=== PATIENT | male | born 1940 | race African-American/Black ===

== ENCOUNTER 2017-03-19 15:10 | Inpatient (IN) ==
[2017-03-19] MEDS ORDERED: SODIUM CHLORIDE 0.9% 500 ML IV STA (15:28)
[2017-03-19 16:30] LABS: Basophils % 0.6 % (0.0-0.8); Eosinophils # 0.1 10*3/uL (0.0-0.87); Eosinophils % 1.5 % (0.00-10.9); Hematocrit 42.2 VOL% (42.0-52.0); Hemoglobin 14.4 GM/DL (14.0-18.0); Immature Granulocytes % 0.2 %; Immature Granulocytes Absolute 0.01 #; Lymphocytes % 19.3 % (21.2-54.2); Mean Corpuscular HGB Conc 34.1 GM/DL (32-36); Mean Corpuscular Hemoglobin 28 PG (27-34); Mean Corpuscular Volume 80.5 FL (87-102); Mean Platelet Volume 10.4 FL (9.6-12.0); Monocytes # 0.4 10*3/uL (0.11-0.8); Monocytes % 8.1 % (1.7-12.7); Neutrophils # 3.6 10*3/uL (1.4-7.4); Neutrophils % 70.3 % (38.7-73.9); Platelet Count 164 T/CUMM (130-400); Red Blood Count 5.24 MC/CUMM (3.8-5.5); Red Cell Distribution Width 13.9 % (9.3-17.3); White Blood Count 5.2 T/CUMM (4-12)
[2017-03-19] MEDS ORDERED: ZIPRASIDONE 20 MG/1 ML VIAL IM STA (16:32)
[2017-03-19] MEDS ORDERED: ZIPRASIDONE 20 MG/1 ML VIAL IM ONE (16:34)
[2017-03-19 16:39] LABS: INR 1.1; PT Patient Result 11.7 SECS
[2017-03-19 16:41] LABS: Apearance,Urine Slightly Hazy (Clear); Bacteria,Urine Occasional /HPF (Few); Bilirubin,Urine Negative (Negative); Blood, Urine Negative (Negative); Glucose,Urine (UA) 50 mg/dL (Negative); Ketones,Urine Negative (Negative); Mucus,Urine Moderate /LPF (Occasional); Nitrite,Urine Negative (Negative); Protein,Urine Negative; RBC,Urine 1 /HPF (0-4); Squamous Epithelial Cell,Urine Occasional /HPF (0-10); Urine Color Yellow (Yellow); Urine Specific Gravity 1.021 (1.001-1.035); WBC,Urine 1 /HPF (0-6)
[2017-03-19 16:57] LABS: Alanine Aminotransferase 13 U/L (16-61); Albumin 3.8 G/DL (3.4-5.0); Alkaline Phosphatase 80 U/L (45-117); Aspartate Amino Transferase 12 U/L (0-37); Blood Urea Nitrogen 19 MG/DL (7-18); Calcium 9.5 MG/DL (8.5-10.1); Glucose 115 MG/DL (74-106); Potassium 3.7 MMOL/L (3.5-5.1); Sodium 143 MMOL/L (136-145); Total Protein 6.7 G/DL (6.4-8.3)
[2017-03-19 17:01] LABS: Barbiturates Screen,Urine Negative (Negative); Benzodiazepines Screen,Urine Positive (Negative); Cannabinoid Screen,Urine Negative (Negative); Opiate Screen,Urine Negative (Negative); Phencyclidine Screen,Urine Negative (Negative)
[2017-03-19] MEDS ORDERED: GLUCAGON 1 MG VIAL IM PRN (19:54)
[2017-03-19] MEDS ORDERED: ONDANSETRON 4 MG/2 ML VIAL IV PRN (19:54)
[2017-03-19] MEDS ORDERED: DEXTROSE 50% 25 GM/50 ML VIAL IV PRN (19:54)
[2017-03-19] MEDS: HALOPERIDOL 5 MG/ML AMP IV PRN (20:05)
[2017-03-19] MEDS: INSULIN LISPRO 100 UNIT/ML SUBCUT SCH ×2 (20:16→21:23)
[2017-03-19] MEDS: SODIUM CHLORIDE 0.9% 1,000 ML IV SCH (20:17)
[2017-03-19] MEDS: THIAMINE 200 MG/2 ML VIAL IV SCH (20:17)
[2017-03-19 21:36] LABS: Free T4 (Free Thyroxine) 1.07 NG/DL (0.76-1.46)
[2017-03-19 21:47] LABS: Magnesium 1.9 MG/DL (1.8-2.4); Thyroid Stimulating Hormone 0.999 uIU/ml (0.358-3.74)
[2017-03-19] MEDS: hydrALAZINE 20 MG/1 ML VIAL IV PRN (22:42)
[2017-03-19] MEDS: LORazepam 2 MG/1 ML VIAL IV PRN (23:41)
[2017-03-20] MEDS: LORazepam 2 MG/1 ML VIAL IV PRN ×5 (01:40→18:31)
[2017-03-20] MEDS: INSULIN LISPRO 100 UNIT/ML SUBCUT SCH ×6 (02:14→22:59)
[2017-03-20] MEDS: SODIUM CHLORIDE 0.9% 1,000 ML IV SCH ×3 (04:17→21:30)
[2017-03-20 05:33] LABS: Basophils % 0.4 % (0.0-0.8); Eosinophils % 0.1 % (0.00-10.9); Hematocrit 45.9 VOL% (42.0-52.0); Hemoglobin 15.6 GM/DL (14.0-18.0); Immature Granulocytes % 0.3 %; Immature Granulocytes Absolute 0.03 #; Lymphocytes # 1.3 10*3/uL (1.4-4.0); Lymphocytes % 11.8 % (21.2-54.2); Mean Corpuscular Hemoglobin 27 PG (27-34); Mean Corpuscular Volume 78.2 FL (87-102); Mean Platelet Volume 11.2 FL (9.6-12.0); Monocytes # 0.9 10*3/uL (0.11-0.8); Monocytes % 7.9 % (1.7-12.7); Neutrophils # 8.7 10*3/uL (1.4-7.4); Neutrophils % 79.5 % (38.7-73.9); Platelet Count 190 T/CUMM (130-400); Red Blood Count 5.87 MC/CUMM (3.8-5.5); Red Cell Distribution Width 13.8 % (9.3-17.3); White Blood Count 10.9 T/CUMM (4-12)
[2017-03-20 06:00] LABS: Albumin 4.2 G/DL (3.4-5.0); Bilirubin,Total 1.5 MG/DL (0.2-1.0); Calcium 9.7 MG/DL (8.5-10.1); Osmolality,Calculated 290.7 MOS/KG (273-304); Potassium 3.4 MMOL/L (3.5-5.1); Total Protein 7.2 G/DL (6.4-8.3)
[2017-03-20] MEDS: THIAMINE 200 MG/2 ML VIAL IV SCH (09:40)
[2017-03-20 12:17] LABS: Basophils % 0.3 % (0.0-0.8); Eosinophils % 0.3 % (0.00-10.9); Hematocrit 43.6 VOL% (42.0-52.0); Immature Granulocytes % 0.4 %; Immature Granulocytes Absolute 0.04 #; Lymphocytes # 0.9 10*3/uL (1.4-4.0); Lymphocytes % 8.1 % (21.2-54.2); Mean Corpuscular HGB Conc 34.4 GM/DL (32-36); Mean Corpuscular Hemoglobin 27 PG (27-34); Mean Corpuscular Volume 79.1 FL (87-102); Mean Platelet Volume 10.9 FL (9.6-12.0); Monocytes # 0.9 10*3/uL (0.11-0.8); Monocytes % 8.1 % (1.7-12.7); Neutrophils # 8.7 10*3/uL (1.4-7.4); Neutrophils % 82.8 % (38.7-73.9); Platelet Count 178 T/CUMM (130-400); Red Blood Count 5.51 MC/CUMM (3.8-5.5); Red Cell Distribution Width 13.9 % (9.3-17.3); White Blood Count 10.5 T/CUMM (4-12)
[2017-03-20 12:45] LABS: Bilirubin,Total 1.2 MG/DL (0.2-1.0); Calcium 9.4 MG/DL (8.5-10.1); Osmolality,Calculated 287.8 MOS/KG (273-304); Potassium 3.4 MMOL/L (3.5-5.1)
[2017-03-20 17:03] LABS: Glucose,CSF 71 MG/DL (40-70)
[2017-03-20 18:39] LABS: Appearance,CSF Clear; Red Blood Cell,CSF < 1 C/CUMM; White Blood Cell,CSF 4 C/CUMM
[2017-03-20 18:43] LABS: Lymphocytes,CSF 50 %; Monocytes,CSF 28 %; Neutrophils,CSF 22 %
[2017-03-21] MEDS: LORazepam 2 MG/1 ML VIAL IV PRN ×5 (00:33→23:26)
[2017-03-21] MEDS: INSULIN LISPRO 100 UNIT/ML SUBCUT SCH ×6 (02:15→22:08)
[2017-03-21] MEDS: hydrALAZINE 20 MG/1 ML VIAL IV PRN (04:39)
[2017-03-21] MEDS: SODIUM CHLORIDE 0.9% 1,000 ML IV SCH ×3 (05:30→22:08)
[2017-03-21 06:19] LABS: Basophils # 0.1 10*3/uL (0.0-0.2); Basophils % 0.5 % (0.0-0.8); Eosinophils # 0.1 10*3/uL (0.0-0.87); Eosinophils % 0.5 % (0.00-10.9); Hematocrit 44.3 VOL% (42.0-52.0); Hemoglobin 15.1 GM/DL (14.0-18.0); Immature Granulocytes % 0.4 %; Immature Granulocytes Absolute 0.05 #; Lymphocytes # 1.2 10*3/uL (1.4-4.0); Lymphocytes % 9.3 % (21.2-54.2); Mean Corpuscular HGB Conc 34.1 GM/DL (32-36); Mean Corpuscular Hemoglobin 27 PG (27-34); Mean Corpuscular Volume 79.7 FL (87-102); Mean Platelet Volume 11.9 FL (9.6-12.0); Monocytes # 0.9 10*3/uL (0.11-0.8); Monocytes % 7.3 % (1.7-12.7); NRBC # 0.02 10*3/uL; Neutrophils # 10.2 10*3/uL (1.4-7.4); Platelet Count 145 T/CUMM (130-400); Red Blood Count 5.56 MC/CUMM (3.8-5.5); Red Cell Distribution Width 14.1 % (9.3-17.3); White Blood Count 12.4 T/CUMM (4-12)
[2017-03-21 07:03] LABS: Albumin 3.6 G/DL (3.4-5.0); Bilirubin,Total 1.3 MG/DL (0.2-1.0); Calcium 9.1 MG/DL (8.5-10.1); Potassium 3.8 MMOL/L (3.5-5.1); Total Protein 6.5 G/DL (6.4-8.3)
[2017-03-21] MEDS: THIAMINE 200 MG/2 ML VIAL IV SCH (08:51)
[2017-03-21] MEDS ORDERED: DILTIAZEM 100 MG VIAL.ADD IV ONE (16:41)
[2017-03-21] MEDS: DILTIAZEM INJ 100 MG in SODIUM CHLORIDE 0.9% 100 ML IV SCH (17:07)
[2017-03-21 18:10] LABS: Troponin I Only 0.065 NG/ML (0.00-0.045)
[2017-03-22] MEDS: DILTIAZEM INJ 100 MG in SODIUM CHLORIDE 0.9% 100 ML IV SCH ×4 (01:43→23:51)
[2017-03-22] MEDS: INSULIN LISPRO 100 UNIT/ML SUBCUT SCH ×6 (02:53→22:14)
[2017-03-22] MEDS: LORazepam 2 MG/1 ML VIAL IV PRN ×4 (05:08→19:56)
[2017-03-22] MEDS: SODIUM CHLORIDE 0.9% 1,000 ML IV SCH ×4 (05:19→20:20)
[2017-03-22 06:59] LABS: Calcium 8.6 MG/DL (8.5-10.1); Magnesium 1.9 MG/DL (1.8-2.4); Osmolality,Calculated 285.8 MOS/KG (273-304); Potassium 4.9 MMOL/L (3.5-5.1)
[2017-03-22 07:35] LABS: Basophils % 0.4 % (0.0-0.8); Eosinophils # 0.2 10*3/uL (0.0-0.87); Eosinophils % 2.2 % (0.00-10.9); Hematocrit 41.3 VOL% (42.0-52.0); Hemoglobin 14.1 GM/DL (14.0-18.0); Immature Granulocytes % 0.2 %; Immature Granulocytes Absolute 0.02 #; Lymphocytes # 1.3 10*3/uL (1.4-4.0); Lymphocytes % 13.9 % (21.2-54.2); Mean Corpuscular HGB Conc 34.1 GM/DL (32-36); Mean Corpuscular Hemoglobin 27 PG (27-34); Mean Corpuscular Volume 79.6 FL (87-102); Mean Platelet Volume 10.5 FL (9.6-12.0); Monocytes # 0.8 10*3/uL (0.11-0.8); Monocytes % 8.2 % (1.7-12.7); Neutrophils # 7.3 10*3/uL (1.4-7.4); Neutrophils % 75.1 % (38.7-73.9); Platelet Count 160 T/CUMM (130-400); Red Blood Count 5.19 MC/CUMM (3.8-5.5); White Blood Count 9.7 T/CUMM (4-12)
[2017-03-22 07:42] LABS: Albumin 3.1 G/DL (3.4-5.0); Bilirubin,Total 1.4 MG/DL (0.2-1.0); Calcium 8.9 MG/DL (8.5-10.1); Total Protein 6.2 G/DL (6.4-8.3)
[2017-03-22] MEDS: THIAMINE 200 MG/2 ML VIAL IV SCH (10:07)
[2017-03-22] MEDS: ENOXAPARIN 80 MG/0.8 ML SYRINGE SUBCUT SCH (17:23)
[2017-03-23] MEDS: INSULIN LISPRO 100 UNIT/ML SUBCUT SCH ×6 (03:22→22:05)
[2017-03-23] MEDS: ENOXAPARIN 80 MG/0.8 ML SYRINGE SUBCUT SCH ×2 (04:09→18:28)
[2017-03-23] MEDS: SODIUM CHLORIDE 0.9% 1,000 ML IV SCH ×2 (04:09→04:14)
[2017-03-23] MEDS: LORazepam 2 MG/1 ML VIAL IV PRN ×5 (04:12→23:17)
[2017-03-23] MEDS: THIAMINE 200 MG/2 ML VIAL IV SCH (08:49)
[2017-03-23] MEDS: DILTIAZEM INJ 100 MG in SODIUM CHLORIDE 0.9% 100 ML IV SCH ×3 (10:44→22:55)
[2017-03-23] MEDS: LACTATED RINGERS 1,000 ML IV SCH ×2 (10:45→18:45)
[2017-03-23] MEDS: HALOPERIDOL 5 MG/ML AMP IV PRN ×2 (13:02→15:44)
[2017-03-23] MEDS ORDERED: AMIODARONE INJ 450 MG in DEXTROSE 5% 241 ML IV SCH (14:30)
[2017-03-23 15:24] LABS: ABG HCO3 21.9 MMOL/L (20-26); ABG Oxygen Saturation 98.5 % (95-100); ABG PCO2 30.9 MM HG (35-48); ABG PH 7.425 (7.35-7.45); ABG TCO2 17.4 MMOL/L (23-27); Allen Test Positive
[2017-03-23] MEDS: AMIODARONE INJ 450 MG in DEXTROSE 5% 241 ML IV SCH (22:56)
[2017-03-24] MEDS: hydrALAZINE 20 MG/1 ML VIAL IV PRN ×3 (01:00→21:34)
[2017-03-24] MEDS: INSULIN LISPRO 100 UNIT/ML SUBCUT SCH ×6 (02:10→21:44)
[2017-03-24] MEDS: LORazepam 2 MG/1 ML VIAL IV PRN ×5 (02:12→17:33)
[2017-03-24] MEDS: LACTATED RINGERS 1,000 ML IV SCH ×3 (02:14→19:21)
[2017-03-24] MEDS: ENOXAPARIN 80 MG/0.8 ML SYRINGE SUBCUT SCH ×2 (05:09→16:48)
[2017-03-24 06:03] LABS: Basophils % 0.6 % (0.0-0.8); Eosinophils # 0.2 10*3/uL (0.0-0.87); Eosinophils % 2.6 % (0.00-10.9); Hematocrit 40.7 VOL% (42.0-52.0); Hemoglobin 14.3 GM/DL (14.0-18.0); Immature Granulocytes % 0.5 %; Immature Granulocytes Absolute 0.03 #; Lymphocytes # 1.3 10*3/uL (1.4-4.0); Lymphocytes % 21.8 % (21.2-54.2); Mean Corpuscular HGB Conc 35.1 GM/DL (32-36); Mean Corpuscular Hemoglobin 27 PG (27-34); Mean Corpuscular Volume 77.5 FL (87-102); Mean Platelet Volume 11.4 FL (9.6-12.0); Monocytes # 0.6 10*3/uL (0.11-0.8); Monocytes % 9.4 % (1.7-12.7); Neutrophils % 65.1 % (38.7-73.9); Platelet Count 195 T/CUMM (130-400); Red Blood Count 5.25 MC/CUMM (3.8-5.5); Red Cell Distribution Width 13.4 % (9.3-17.3); White Blood Count 6.2 T/CUMM (4-12)
[2017-03-24 06:34] LABS: Calcium 8.7 MG/DL (8.5-10.1); Potassium 3.8 MMOL/L (3.5-5.1)
[2017-03-24] MEDS: THIAMINE 200 MG/2 ML VIAL IV SCH (08:39)
[2017-03-24] MEDS: DILTIAZEM INJ 100 MG in SODIUM CHLORIDE 0.9% 100 ML IV SCH ×3 (08:48→19:21)
[2017-03-24 12:31] LABS: VDRL Spinal Fluid Negative (Negative)
[2017-03-24] MEDS: AMIODARONE INJ 450 MG in DEXTROSE 5% 241 ML IV SCH (16:47)
[2017-03-24 20:13] LABS: Apearance,Urine CLEAR (Clear); Bacteria,Urine Occasional /HPF (Few); Bilirubin,Urine Negative (Negative); Blood, Urine Moderate mg/dL (Negative); Glucose,Urine (UA) 150 mg/dL (Negative); Ketones,Urine 20 mg/dL (Negative); Mucus,Urine Occasional /LPF (Occasional); Nitrite,Urine Negative (Negative); Protein,Urine Negative; RBC,Urine 45 /HPF (0-4); Urine Color Straw (Yellow); Urine Specific Gravity 1.005 (1.001-1.035); WBC,Urine 1 /HPF (0-6)
[2017-03-24] MEDS: QUEtiapine 25 MG TABLET PO SCH (23:20)
[2017-03-25] MEDS: hydrALAZINE 20 MG/1 ML VIAL IV PRN ×3 (00:25→20:26)
[2017-03-25] MEDS: INSULIN LISPRO 100 UNIT/ML SUBCUT SCH ×5 (01:31→17:41)
[2017-03-25] MEDS: LACTATED RINGERS 1,000 ML IV SCH ×3 (03:19→19:27)
[2017-03-25] MEDS: AMIODARONE INJ 450 MG in DEXTROSE 5% 241 ML IV SCH ×2 (05:08→09:44)
[2017-03-25] MEDS: DILTIAZEM INJ 100 MG in SODIUM CHLORIDE 0.9% 100 ML IV SCH ×3 (05:09→16:08)
[2017-03-25] MEDS: ENOXAPARIN 80 MG/0.8 ML SYRINGE SUBCUT SCH ×2 (05:17→20:27)
[2017-03-25 05:28] LABS: Basophils % 0.5 % (0.0-0.8); Eosinophils % 0.4 % (0.00-10.9); Hematocrit 41.7 VOL% (42.0-52.0); Hemoglobin 14.6 GM/DL (14.0-18.0); Immature Granulocytes % 0.4 %; Immature Granulocytes Absolute 0.03 #; Lymphocytes # 0.9 10*3/uL (1.4-4.0); Lymphocytes % 10.7 % (21.2-54.2); Mean Corpuscular Hemoglobin 27 PG (27-34); Mean Corpuscular Volume 78.2 FL (87-102); Mean Platelet Volume 11.2 FL (9.6-12.0); Monocytes # 0.9 10*3/uL (0.11-0.8); Monocytes % 10.7 % (1.7-12.7); Neutrophils # 6.3 10*3/uL (1.4-7.4); Neutrophils % 77.3 % (38.7-73.9); Platelet Count 208 T/CUMM (130-400); Red Blood Count 5.33 MC/CUMM (3.8-5.5); Red Cell Distribution Width 13.4 % (9.3-17.3); White Blood Count 8.2 T/CUMM (4-12)
[2017-03-25 05:47] LABS: Calcium 9.3 MG/DL (8.5-10.1); Magnesium 1.7 MG/DL (1.8-2.4); Osmolality,Calculated 278.3 MOS/KG (273-304); Potassium 3.4 MMOL/L (3.5-5.1)
[2017-03-25] MEDS: LORazepam 2 MG/1 ML VIAL IV PRN ×3 (07:42→20:26)
[2017-03-25] MEDS: THIAMINE 200 MG/2 ML VIAL IV SCH (09:39)
[2017-03-25] MEDS: QUEtiapine 25 MG TABLET PO SCH ×2 (11:14→20:25)
[2017-03-25 13:26] LABS: M. Tuberculosis PCR Result Negative (Negative); M. Tuberculosis PCR Source CSF
[2017-03-26] MEDS: INSULIN LISPRO 100 UNIT/ML SUBCUT SCH ×5 (00:17→18:04)
[2017-03-26] MEDS: hydrALAZINE 20 MG/1 ML VIAL IV PRN ×2 (00:52→07:44)
[2017-03-26] MEDS: DILTIAZEM INJ 100 MG in SODIUM CHLORIDE 0.9% 100 ML IV SCH ×4 (01:30→23:48)
[2017-03-26] MEDS: LORazepam 2 MG/1 ML VIAL IV PRN ×2 (01:37→07:45)
[2017-03-26] MEDS: LACTATED RINGERS 1,000 ML IV SCH ×5 (03:51→21:03)
[2017-03-26 05:04] LABS: Basophils # 0.1 10*3/uL (0.0-0.2); Basophils % 0.5 % (0.0-0.8); Eosinophils # 0.1 10*3/uL (0.0-0.87); Eosinophils % 0.6 % (0.00-10.9); Hematocrit 43.7 VOL% (42.0-52.0); Hemoglobin 15.6 GM/DL (14.0-18.0); Immature Granulocytes % 0.4 %; Immature Granulocytes Absolute 0.04 #; Lymphocytes % 10.3 % (21.2-54.2); Mean Corpuscular HGB Conc 35.7 GM/DL (32-36); Mean Corpuscular Hemoglobin 28 PG (27-34); Mean Corpuscular Volume 77.8 FL (87-102); Mean Platelet Volume 12.1 FL (9.6-12.0); Monocytes # 1.2 10*3/uL (0.11-0.8); Monocytes % 12.3 % (1.7-12.7); NRBC # 0.02 10*3/uL; Neutrophils # 7.2 10*3/uL (1.4-7.4); Neutrophils % 75.9 % (38.7-73.9); Platelet Count 129 T/CUMM (130-400); Red Blood Count 5.62 MC/CUMM (3.8-5.5); Red Cell Distribution Width 13.8 % (9.3-17.3); White Blood Count 9.5 T/CUMM (4-12)
[2017-03-26 05:18] LABS: Eosinophils 2 % (0-10); Lymphocytes 18 % (20-55); Segmented Neutrophils 71 % (50-85); Total Cells Counted 100
[2017-03-26 05:19] LABS: Giant Platelets Few; Hypochromasia Slight; Ovalocytes Slight; Platelet Estimate Normal
[2017-03-26] MEDS: QUEtiapine 25 MG TABLET PO SCH ×2 (08:01→20:40)
[2017-03-26] MEDS: ENOXAPARIN 80 MG/0.8 ML SYRINGE SUBCUT SCH ×2 (08:01→20:40)
[2017-03-26] MEDS: THIAMINE 200 MG/2 ML VIAL IV SCH (08:01)
[2017-03-26 09:07] LABS: Calcium 9.2 MG/DL (8.5-10.1); Magnesium 1.8 MG/DL (1.8-2.4); Osmolality,Calculated 283.1 MOS/KG (273-304); Phosphorous 2.5 MG/DL (2.5-4.9); Potassium 3.2 MMOL/L (3.5-5.1); Prealbumin 10.7 MG/DL (20-40)
[2017-03-27] MEDS: INSULIN LISPRO 100 UNIT/ML SUBCUT SCH ×4 (00:48→18:14)
[2017-03-27] MEDS: LACTATED RINGERS 1,000 ML IV SCH ×4 (05:10→22:24)
[2017-03-27 05:43] LABS: Basophils # 0.1 10*3/uL (0.0-0.2); Basophils % 0.9 % (0.0-0.8); Eosinophils # 0.3 10*3/uL (0.0-0.87); Eosinophils % 4.1 % (0.00-10.9); Hematocrit 40.6 VOL% (42.0-52.0); Hemoglobin 13.9 GM/DL (14.0-18.0); Immature Granulocytes % 0.3 %; Immature Granulocytes Absolute 0.02 #; Lymphocytes % 15.2 % (21.2-54.2); Mean Corpuscular HGB Conc 34.2 GM/DL (32-36); Mean Corpuscular Hemoglobin 27 PG (27-34); Mean Corpuscular Volume 78.8 FL (87-102); Mean Platelet Volume 11.2 FL (9.6-12.0); Monocytes # 0.7 10*3/uL (0.11-0.8); Monocytes % 10.1 % (1.7-12.7); Neutrophils # 4.6 10*3/uL (1.4-7.4); Neutrophils % 69.4 % (38.7-73.9); Platelet Count 177 T/CUMM (130-400); Red Blood Count 5.15 MC/CUMM (3.8-5.5); Red Cell Distribution Width 13.5 % (9.3-17.3); White Blood Count 6.7 T/CUMM (4-12)
[2017-03-27 06:18] LABS: Calcium 8.9 MG/DL (8.5-10.1); Magnesium 1.8 MG/DL (1.8-2.4); Osmolality,Calculated 289.7 MOS/KG (273-304); Potassium 3.5 MMOL/L (3.5-5.1)
[2017-03-27] MEDS: DILTIAZEM INJ 100 MG in SODIUM CHLORIDE 0.9% 100 ML IV SCH ×3 (06:23→20:31)
[2017-03-27] MEDS: ENOXAPARIN 80 MG/0.8 ML SYRINGE SUBCUT SCH ×2 (09:05→21:00)
[2017-03-27] MEDS: QUEtiapine 25 MG TABLET PO SCH ×2 (09:05→21:01)
[2017-03-27] MEDS: THIAMINE 200 MG/2 ML VIAL IV SCH (09:05)
[2017-03-27] MEDS: LORazepam 2 MG/1 ML VIAL IV PRN ×2 (13:02→20:55)
[2017-03-27] MEDS: hydrALAZINE 20 MG/1 ML VIAL IV SCH (22:25)
[2017-03-28] MEDS: INSULIN LISPRO 100 UNIT/ML SUBCUT SCH ×5 (00:58→23:53)
[2017-03-28] MEDS: DILTIAZEM INJ 100 MG in SODIUM CHLORIDE 0.9% 100 ML IV SCH ×4 (04:00→23:47)
[2017-03-28 04:53] LABS: Basophils % 0.6 % (0.0-0.8); Eosinophils # 0.2 10*3/uL (0.0-0.87); Eosinophils % 2.7 % (0.00-10.9); Hematocrit 40.7 VOL% (42.0-52.0); Hemoglobin 14.1 GM/DL (14.0-18.0); Immature Granulocytes % 0.5 %; Immature Granulocytes Absolute 0.03 #; Lymphocytes # 0.9 10*3/uL (1.4-4.0); Lymphocytes % 13.6 % (21.2-54.2); Mean Corpuscular HGB Conc 34.6 GM/DL (32-36); Mean Corpuscular Hemoglobin 27 PG (27-34); Mean Corpuscular Volume 78.7 FL (87-102); Mean Platelet Volume 10.7 FL (9.6-12.0); Monocytes # 0.7 10*3/uL (0.11-0.8); Monocytes % 11.6 % (1.7-12.7); Neutrophils # 4.5 10*3/uL (1.4-7.4); Platelet Count 203 T/CUMM (130-400); Red Blood Count 5.17 MC/CUMM (3.8-5.5); Red Cell Distribution Width 13.4 % (9.3-17.3); White Blood Count 6.4 T/CUMM (4-12)
[2017-03-28] MEDS: hydrALAZINE 20 MG/1 ML VIAL IV SCH ×4 (05:24→23:47)
[2017-03-28 05:26] LABS: Calcium 9.4 MG/DL (8.5-10.1); Osmolality,Calculated 285.8 MOS/KG (273-304); Potassium 3.5 MMOL/L (3.5-5.1)
[2017-03-28] MEDS: LACTATED RINGERS 1,000 ML IV SCH ×3 (06:50→23:17)
[2017-03-28] MEDS: hydrALAZINE 20 MG/1 ML VIAL IV PRN (08:18)
[2017-03-28] MEDS: ENOXAPARIN 80 MG/0.8 ML SYRINGE SUBCUT SCH (08:18)
[2017-03-28] MEDS: THIAMINE 200 MG/2 ML VIAL IV SCH (08:18)
[2017-03-28] MEDS: QUEtiapine 25 MG TABLET PO SCH (08:27)
[2017-03-28] MEDS: RIVAROXABAN 20 MG TABLET PO SCH (16:50)
[2017-03-28] MEDS: OLANZapine 5 MG TABLET PO SCH (20:15)
[2017-03-28] MEDS: CARVEDILOL 6.25 MG TABLET PO SCH (20:15)
[2017-03-29 05:26] LABS: Basophils % 0.6 % (0.0-0.8); Eosinophils # 0.3 10*3/uL (0.0-0.87); Eosinophils % 5.1 % (0.00-10.9); Hematocrit 37.8 VOL% (42.0-52.0); Immature Granulocytes % 0.2 %; Immature Granulocytes Absolute 0.01 #; Lymphocytes # 0.9 10*3/uL (1.4-4.0); Mean Corpuscular HGB Conc 34.4 GM/DL (32-36); Mean Corpuscular Hemoglobin 27 PG (27-34); Mean Corpuscular Volume 79.2 FL (87-102); Mean Platelet Volume 11.5 FL (9.6-12.0); Monocytes # 0.5 10*3/uL (0.11-0.8); Neutrophils # 3.2 10*3/uL (1.4-7.4); Neutrophils % 66.1 % (38.7-73.9); Red Blood Count 4.77 MC/CUMM (3.8-5.5); Red Cell Distribution Width 13.7 % (9.3-17.3); White Blood Count 4.9 T/CUMM (4-12)
[2017-03-29 05:28] LABS: Platelet Count 89 T/CUMM (130-400)
[2017-03-29 05:48] LABS: Hypochromasia 1+
[2017-03-29 05:49] LABS: Microcytosis Slight
[2017-03-29 06:06] LABS: Calcium 9.2 MG/DL (8.5-10.1); Magnesium 2.1 MG/DL (1.8-2.4); Osmolality,Calculated 291.7 MOS/KG (273-304); Potassium 3.6 MMOL/L (3.5-5.1)
[2017-03-29] MEDS: LACTATED RINGERS 1,000 ML IV SCH ×2 (06:33→15:45)
[2017-03-29] MEDS: DILTIAZEM INJ 100 MG in SODIUM CHLORIDE 0.9% 100 ML IV SCH (06:33)
[2017-03-29] MEDS: hydrALAZINE 20 MG/1 ML VIAL IV SCH ×2 (06:44→12:46)
[2017-03-29] MEDS: INSULIN LISPRO 100 UNIT/ML SUBCUT SCH ×3 (06:44→18:34)
[2017-03-29] MEDS: LISINOPRIL 20 MG TABLET PO SCH (10:12)
[2017-03-29] MEDS: THIAMINE 200 MG/2 ML VIAL IV SCH (10:13)
[2017-03-29] MEDS: CARVEDILOL 6.25 MG TABLET PO SCH ×2 (10:13→21:26)
[2017-03-29] MEDS: DILTIAZEM CD 180 MG CAPSULE PO SCH (12:45)
[2017-03-29] MEDS: RIVAROXABAN 20 MG TABLET PO SCH (17:01)
[2017-03-29] MEDS: amLODIPine 5 MG TABLET PO SCH (17:01)
[2017-03-29] MEDS: OLANZapine 5 MG TABLET PO SCH (21:26)
[2017-03-30] MEDS ORDERED: ACETAMINOPHEN 325 MG TABLET PO PRN (00:31)
[2017-03-30] MEDS: INSULIN LISPRO 100 UNIT/ML SUBCUT SCH ×3 (00:39→12:45)
[2017-03-30] MEDS ORDERED: HALOPERIDOL 5 MG/ML AMP IM PRN (00:45)
[2017-03-30] MEDS: LORazepam 2 MG/1 ML VIAL IM PRN ×3 (00:48→10:13)
[2017-03-30 04:53] LABS: Basophils % 0.6 % (0.0-0.8); Eosinophils # 0.2 10*3/uL (0.0-0.87); Eosinophils % 2.4 % (0.00-10.9); Hematocrit 38.7 VOL% (42.0-52.0); Hemoglobin 13.1 GM/DL (14.0-18.0); Immature Granulocytes % 0.2 %; Immature Granulocytes Absolute 0.01 #; Lymphocytes % 15.9 % (21.2-54.2); Mean Corpuscular HGB Conc 33.9 GM/DL (32-36); Mean Corpuscular Hemoglobin 27 PG (27-34); Mean Corpuscular Volume 80.3 FL (87-102); Mean Platelet Volume 10.6 FL (9.6-12.0); Monocytes # 0.6 10*3/uL (0.11-0.8); Monocytes % 9.1 % (1.7-12.7); Neutrophils # 4.6 10*3/uL (1.4-7.4); Neutrophils % 71.8 % (38.7-73.9); Platelet Count 160 T/CUMM (130-400); Red Blood Count 4.82 MC/CUMM (3.8-5.5); White Blood Count 6.3 T/CUMM (4-12)
[2017-03-30 05:27] LABS: Magnesium 2.1 MG/DL (1.8-2.4); Osmolality,Calculated 290.7 MOS/KG (273-304); Potassium 3.4 MMOL/L (3.5-5.1)
[2017-03-30 05:31] LABS: Phosphorous 2.5 MG/DL (2.5-4.9)
[2017-03-30 12:15] VITALS: BP 183/79
[2017-03-30] MEDS: DILTIAZEM CD 180 MG CAPSULE PO SCH (12:43)
[2017-03-30] MEDS: LISINOPRIL 20 MG TABLET PO SCH (12:44)
[2017-03-30] MEDS: amLODIPine 5 MG TABLET PO SCH (12:44)
[2017-03-30] MEDS: CARVEDILOL 6.25 MG TABLET PO SCH (12:45)
[2017-03-30] MEDS: THIAMINE 200 MG/2 ML VIAL IV SCH (12:45)
[2017-03-30] MEDS ORDERED: ASCORBIC ACID 500 MG TABLET PO SCH (14:00)
[2017-03-30] MEDS ORDERED: POTASSIUM CHLORIDE 20 MEQ TABLET PO SCH (14:00)
== END 2017-03-30 14:33 | DRG 948 ==
LOC: EDBD → EDUNIT# → N.ED 15:10 → SUATTDRO 16:59 → N.EDINP 16:59 → N.CC 18:59 → N.TELEN 03-29 17:52
PROVIDERS: ADMIT Internal Medicine; ATTEND Internal Medicine